=== PATIENT | female | born 1990 | race Caucasian/White ===

== ENCOUNTER 2018-03-15 09:32 | Emergency (ER) | payer SELFPAY, OTHER ==
[2018-03-15] MEDS: NS 1,000 ML IV (10:06)
[2018-03-15] MEDS: ONDANSETRON 4MG/2ML VIAL (J2405) IV (10:06)
[2018-03-15] MEDS: ACETAMINOPHEN 325 MG TAB PO (10:08)
[2018-03-15 10:19] LABS: BASO % 0.4 % (0.0-1.0); EOS # 0.3 10^3/uL (0.0-0.50); EOS % 3.2 % (0.0-3.0); HEMATOCRIT 42.2 % (36.0-47.0); IMMATURE GRANULOCYTE % 0.2 % (0-3.0); LYMPH # 2.7 10^3/uL (1.5-6.5); LYMPH % 26.7 % (24.0-44.0); MEAN CORPUSCULAR HEMOGLOBIN 27.8 pg (27.0-33.0); MEAN CORPUSCULAR HGB CONC 33.2 g/dl (32.0-36.5); MEAN CORPUSCULAR VOLUME 83.7 fl (80.0-96.0); MONO # 0.5 10^3/uL (0.0-0.8); MONO % 5.2 % (0.0-5.0); NEUTROPHILS # 6.6 10^3/uL (1.8-7.7); NEUTROPHILS % 64.3 % (36.0-66.0); PLATELET COUNT, AUTOMATED 306 10^3/uL (150-450); RED BLOOD COUNT 5.04 10^6/uL (4.00-5.40); RED CELL DISTRIBUTION WIDTH 14.1 % (11.5-14.5); WHITE BLOOD COUNT 10.2 10^3/uL (4.0-10.0)
[2018-03-15 10:30] LABS: KETONE, URINE AUTO RFX NEGATIVE (NEGATIVE); MUCUS, URINE RFX SMALL (NEGATIVE); NITRITE, URINE AUTO RFX NEGATIVE (NEGATIVE); RBC, URINE AUTO RFX 2 /HPF (0-3); SPECIFIC GRAVITY UR AUTO RFX 1.021 (1.002-1.035); SQUAM EPITHELIAL CELL UR AURFX 22 /HPF (0-6)
[2018-03-15 10:43] LABS: ALBUMIN/GLOBULIN RATIO 0.74 (1.00-1.93); ALKALINE PHOSPHATASE 102 U/L (45-117); ALT/SGPT 40 U/L (12-78); ANION GAP 8 MEQ/L (8-16); AST/SGOT 29 U/L (7-37); BILIRUBIN,TOTAL 0.5 MG/DL (0.2-1.0); BLOOD UREA NITROGEN 10 MG/DL (7-18); CALCIUM LEVEL 9.6 MG/DL (8.5-10.1); CARBON DIOXIDE LEVEL 29 MEQ/L (21-32); CHLORIDE LEVEL 103 MEQ/L (98-107); CREATININE FOR GFR 0.85 MG/DL (0.55-1.30); GLOMERULAR FILTRATION RATE > 60.0 (>60); GLUCOSE, FASTING 94 MG/DL (70-100); HCG, SERUM QUANTITATIVE < 1.0 MIU/ML; LIPASE 216 U/L (73-393); POTASSIUM SERUM 3.4 MEQ/L (3.5-5.1); SODIUM LEVEL 140 MEQ/L (136-145); TOTAL PROTEIN 9.4 GM/DL (6.4-8.2)
[2018-03-15 11:03] LABS: LEUKOCYTE ESTERASE UR AUTO RFX 3+ (NEGATIVE); WBC, URINE AUTO RFX 28 /HPF (0-3)
== END 2018-03-15 12:46 | disposition home or self-care (01) ==
LOC: M ED 09:32
DX: N30.90 Cystitis, unspecified without hematuria (principal); N83.201 Unspecified ovarian cyst, right side; Z88.0 Allergy status to penicillin; Z88.5 Allergy status to narcotic agent
CPT/HCPCS: J2405

== ENCOUNTER → 2020-07-02 | Outpatient (REF) | payer OTHER ==
[~2020-07-02] MED LIST: ACET500T15 PO; ANUS2.5C2 PR; DOCU5LIQ PO; IBUP80TA PO; KETO10TAB PO; MACR100C43 PO; MAPA500T17 PO; MOM30SS PO; PRENTAB8 PO; ZONI50CA11 PO
== END ==
LOC: M PLALAB 11:27
PROVIDERS: ATTEND Obstetrics & Gynecology
DX: Z32.01 Encounter for pregnancy test, result positive (principal)

== ENCOUNTER → 2021-02-25 | Outpatient (CLI) | payer OTHER ==
[2021-02-25 18:17] LABS: FOLLICLE STIMULATING HORMONE 6.6 mIU/mL; FREE T4 0.9 NG/DL (0.76-1.46); LUTEINIZING HORMONE 8.7 mIU/mL; PROGESTERONE 0.21 NG/ML; PROLACTIN 6.5 NG/ML; THYROID STIMULATING HORMONE 2.2 uIU/ML (0.358-3.740)
== END ==
LOC: M PLALAB 14:58
PROVIDERS: ATTEND Specialist
DX: N92.6 Irregular menstruation, unspecified (principal)

== ENCOUNTER → 2022-08-10 | Outpatient (CLI) | payer OTHER | LOC: M SLEEP HO 09:20 | PROVIDERS: ATTEND Physician Assistant | DX: G47.33 Obstructive sleep apnea (adult) (pediatric) (principal) ==

== ENCOUNTER 2022-10-29 11:57 | Day surgery (SDC) | payer OTHER ==
[~2022-10-29] VITALS: Ht 162.6 cm; Wt 124.5 kg
[~2022-10-29 11:57] MED LIST changes: +TRI-TAB16 PO
[2022-10-29] MEDS: NS 1,000 ML IV ONE (13:33)
[2022-10-29] MEDS ORDERED: fentaNYL 100 MCG/2 ML INJECTION As Ordered ONE (13:51)
[2022-10-29] MEDS ORDERED: LIDOCAINE 2% 100MG/5ML SDV (FOR ANES.) As Ordered ONE (13:52)
[2022-10-29] MEDS ORDERED: propofoL 200 MG/20 ML VIAL As Ordered ONE (13:52)
[2022-10-29] MEDS ORDERED: CETACAINE SPRAY 5GM As Ordered ONE (15:25)
[2022-10-29 16:00] VITALS: BP 126/75
== END 2022-10-29 16:18 | disposition home or self-care (01) ==
LOC: M OPP 11:57
PROVIDERS: ATTEND Internal Medicine Gastroenterology
DX: E66.01 Morbid (severe) obesity due to excess calories (principal); Z68.42 Body mass index [BMI] 45.0-49.9, adult; R12 Heartburn; Z01.818 Encounter for other preprocedural examination
CPT/HCPCS: 43239; 88305; J3010

== ENCOUNTER 2023-07-17 11:21 | Emergency (ER) | payer OTHER ==
[~2023-07-17] VITALS: Ht 162.6 cm; Wt 128.0 kg
[2023-07-17] MEDS ORDERED: DOXY100T (11:53)
[2023-07-17] MEDS ORDERED: PRED20TA (11:53)
[2023-07-17 12:34] LABS: ERYTHROCYTE SEDIMENTATION RATE 51 mm/hr (0-20)
[2023-07-17 12:43] LABS: BASO % 0.3 % (0.0-1.0); EOS # 0.1 10^3/uL (0.0-0.5); HEMATOCRIT 40.2 % (36.0-47.0); HEMOGLOBIN 13.1 g/dl (12.0-15.5); LYMPH # 4.1 10^3/uL (1.5-5.0); LYMPH % 30.6 % (24.0-44.0); MEAN CORPUSCULAR HEMOGLOBIN 27.8 pg (27.0-33.0); MEAN CORPUSCULAR HGB CONC 32.6 g/dl (32.0-36.5); MEAN CORPUSCULAR VOLUME 85.2 fl (80.0-96.0); MONO # 0.9 10^3/uL (0.0-0.8); MONO % 6.4 % (2.0-8.0); NEUTROPHILS # 8.3 10^3/uL (1.5-8.5); NEUTROPHILS % 61.5 % (36.0-66.0); PLATELET COUNT, AUTOMATED 329 10^3/uL (150-450); RED BLOOD COUNT 4.72 10^6/uL (4.00-5.40); WHITE BLOOD COUNT 13.5 10^3/uL (4.0-10.0)
[2023-07-17 12:53] LABS: HCG, SERUM QUANTITATIVE < 2.6 MIU/ML (<4.2)
[2023-07-17 12:54] LABS: ALBUMIN 3.3 G/DL (3.2-5.2); ALKALINE PHOSPHATASE 81 U/L (46-116); ALT/SGPT 26 U/L (7.0-40); AST/SGOT 11 U/L (<34); BILIRUBIN,DIRECT 0.1 MG/DL (<0.4); BILIRUBIN,TOTAL 0.4 MG/DL (0.3-1.2); BLOOD UREA NITROGEN 17 MG/DL (9-23); CARBON DIOXIDE LEVEL 28 MMOL/L (20-31); CHLORIDE LEVEL 106 MMOL/L (98-107); CREATININE FOR GFR 0.68 MG/DL (0.55-1.30); GLOMERULAR FILTRATION RATE > 60.0 (>60); GLUCOSE, FASTING 141 MG/DL (60-100); POTASSIUM SERUM 3.8 MMOL/L (3.5-5.1); SODIUM LEVEL 140 MMOL/L (136-145); TOTAL PROTEIN 6.9 G/DL (5.7-8.2)
[2023-07-17 14:18] VITALS: BP 132/82; TEMP 97.3; O2SAT 100
== END 2023-07-17 14:25 | disposition home or self-care (01) ==
LOC: M ED 11:21
DX: L30.9 Dermatitis, unspecified (principal); Z88.0 Allergy status to penicillin; Z88.5 Allergy status to narcotic agent

== ENCOUNTER → 2023-07-22 | Outpatient (CLI) | payer OTHER ==
[~2023-07-22] MED LIST changes: +DOXY100T; +PRED20TA
== END ==
LOC: M LAB 14:26
PROVIDERS: ATTEND Emergency Medicine
DX: L30.9 Dermatitis, unspecified (principal)

== ENCOUNTER → 2023-07-26 | Outpatient (REF) | payer OTHER | LOC: M SFHCDERM 12:26 | PROVIDERS: ATTEND Physician Assistant | DX: L30.8 Other specified dermatitis (principal) ==

== ENCOUNTER → 2023-08-18 | Outpatient (CLI) | payer OTHER ==
[2023-08-18 19:12] LABS: APPEARANCE, URINE CLEAR (CLEAR); BACTERIA, URINE AUTO NEGATIVE (NEGATIVE); BILIRUBIN, URINE AUTO NEGATIVE (NEGATIVE); BLOOD, URINE BLOOD NEGATIVE (NEGATIVE); COLOR, URINE YELLOW (YELLOW); GLUCOSE, URINE (UA) AUTO NEGATIVE (NEGATIVE); KETONE, URINE AUTO NEGATIVE (NEGATIVE); LEUKOCYTE ESTERASE, URINE AUTO TRACE (NEGATIVE); MUCUS, URINE SMALL (NEGATIVE); NITRITE, URINE AUTO NEGATIVE (NEGATIVE); PROTEIN, URINE AUTO NEGATIVE (NEGATIVE); RBC, URINE AUTO 0 /HPF (0-3); SPECIFIC GRAVITY URINE AUTO 1.024 (1.002-1.035); SQUAMOUS EPITHELIAL CELL UR AU 4 /HPF (0-6); UROBILINOGEN, URINE AUTO 0.2 mg/dL (0.0-2.0); WBC, URINE AUTO 1 /HPF (0-3)
[2023-08-18 19:33] LABS: INR 1.04; PROTHROMBIN TIME 13.3 SECONDS (12.5-14.5)
[2023-08-18 19:34] LABS: PARTIAL THROMBOPLASTIN TIME 28.6 SECONDS (24.8-34.2)
[2023-08-18 19:39] LABS: ANTI-STREPTOLYSIN O QUANT < 25.0 IU/ML (<195); HEPATITIS B SURFACE ANTIBODY POSITIVE (POSITIVE)
[2023-08-18 20:13] LABS: HEPATITIS C VIRUS ABY INDEX 0.02 INDEX (<0.8)
[2023-08-24 16:09] LABS: HEPATITIS A IgG TOTAL Positive (Negative)
== END ==
LOC: M LABDRWAD 14:16
PROVIDERS: ATTEND Physician Assistant
DX: L30.8 Other specified dermatitis (principal)

== ENCOUNTER → 2023-08-23 | Outpatient (REF) | payer OTHER | LOC: M SFHCDERM 12:45 | PROVIDERS: ATTEND Physician Assistant | DX: L30.8 Other specified dermatitis (principal) ==

== ENCOUNTER → 2023-09-06 | Outpatient (REF) | payer OTHER | LOC: M SFHCDERM 14:30 | PROVIDERS: ATTEND Physician Assistant | DX: A49.1 Streptococcal infection, unspecified site (principal) ==